=== PATIENT | female | born 1955 | race Two or more races ===

== ENCOUNTER 2024-12-19 09:22 | Outpatient (CLI) | payer OTHER | END 2024-12-19 10:01 | disposition home or self-care (01) | LOC: LAB 09:22 → EKG 09:22 → LAB 10:01 | DX: R07.1 Chest pain on breathing (principal) ==

== ENCOUNTER 2025-01-01 08:47 | Day surgery (SDC) | payer OTHER ==
[~2025-01-01 08:47] MED LIST: B12 ACTIVE1000 MCG PO; METFORMIN HCL500 M3 PO; ROSUVASTATIN CA10 MG PO; ZETIA10 MG PO
[2025-01-01] MEDS ORDERED: KETOROLAC TROMETHAMINE 15 MG VIAL IV ONE (15:00)
== END 2025-01-01 17:20 | disposition home or self-care (01) ==
LOC: CIR.AMB 08:47
PROVIDERS: ATTEND Obstetrics & Gynecology
DX: N95.0 Postmenopausal bleeding (principal); N88.2 Stricture and stenosis of cervix uteri